=== PATIENT | female | born 1950 | race Caucasian/White ===

== ENCOUNTER 2022-11-26 12:58 | Emergency (ER) | payer MEDICARE ==
[~2022-11-26] VITALS: Ht 160 cm; Wt 100.0 kg
[2022-11-26] MEDS ORDERED: LEVO25TA9 PO (13:12)
[2022-11-26] MEDS ORDERED: MONT-35 PO (13:12)
[2022-11-26] MEDS ORDERED: METF-1211 PO (13:12)
[2022-11-26] MEDS ORDERED: LISI-892 PO (13:12)
[2022-11-26] MEDS ORDERED: ATOR40TA28 PO (13:12)
[2022-11-26 17:06] LABS: BASOPHILS % (AUTO) 0.5 % (0.0-2.0); EOSINOPHILS % (AUTO) 0.8 % (1.0-6.0); HEMATOCRIT 40.5 % (36-46); HEMOGLOBIN 13.3 g/dL (12.0-16.0); LYMPHOCYTES # (AUTO) 1.4 K/uL (1.0-4.8); LYMPHOCYTES % (AUTO) 16.5 % (22.0-44.0); MEAN CORPUSCULAR HGB CONC 32.9 G/dL (31.0-37.0); MEAN CORPUSCULAR VOLUME 94 fL (80-100); MONOCYTES # (AUTO) 0.5 K/uL (0.1-1.0); MONOCYTES % (AUTO) 5.3 % (2.0-9.0); NEUTROPHILS # (AUTO) 6.6 K/uL (1.8-7.7); NEUTROPHILS % (AUTO) 76.9 % (40.0-70.0); PLATELET COUNT (AUTO) 280 K/uL (150-450); RED CELL DISTRIBUTION WIDTH 14.9 % (11.5-14.5)
[2022-11-26 17:15] LABS: CALCIUM, TOTAL 10.4 mg/dL (8.8-10.5); POTASSIUM 5.7 mmol/L (3.5-5.1)
[2022-11-26 17:45] VITALS: BP 141/89
== END 2022-11-26 18:15 | disposition home or self-care (01) ==
LOC: EMS 12:58
DX: R42 Dizziness and giddiness (principal); E87.5 Hyperkalemia; E86.0 Dehydration; J45.909 Unspecified asthma, uncomplicated; E11.9 Type 2 diabetes mellitus without complications; I10 Essential (primary) hypertension
CPT/HCPCS: 80048; 82962; 85025; 93005; 99284